=== PATIENT | female | born 1970 | race Caucasian/White ===

== ENCOUNTER 2019-08-14 14:19 | Emergency (ER) | payer OTHER ==
[2019-08-14 14:28] VITALS: BP 122/72; PULSE 63; TEMP 98; BMI 22.8
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
== END 2019-08-14 14:55 | disposition home or self-care (01) ==
LOC: JERFT 14:19
DX: S00.83XA Contusion of other part of head, initial encounter (principal); W22.8XXA Striking against or struck by other objects, initial encounter; Y93.E9 Activity, other interior property and clothing maintenance; Y92.031 Bathroom in apartment as the place of occurrence of the external cause; Y99.8 Other external cause status; H57.89 Other specified disorders of eye and adnexa
CPT/HCPCS: 99281-25